=== PATIENT | male | born 1970 | race Caucasian/White ===

== ENCOUNTER 2020-05-29 14:04 | Inpatient (IN) | payer MEDICAID ==
[~2020-05-29] VITALS: Ht 170.2 cm; Wt 90.9 kg
[~2020-05-29 14:04] MED LIST: AMOX-291 PO; ASPI81TA45 PO; ATOR-2 PO; CLAR500T3 PO; FURO40TA6 PO; HYDR-3151 PO; ISOS30TA8 PO; METO25TA2 PO; METO25TA35 PO; OMEP20TA9 PO; PRAS10TA4 PO; SPIR25TA5 PO
--- NOTE | 2020-05-29 14:40 | NUR ---
PT SENT FROM [facility]. Hx NV, CHF, METH USE. HASN'T TAKEN LASIX x 2 MONTHS UNTIL 2 DAYS AGO. STATES "IT WASN'T WORKING" AND PRESENTED TO ER ORIGINALLY WITH SOB. TROP 0.26, BNP N933, GIVEN 324MG ASA, 2MG MORPHINE, AND A SHOT OF TORADOL. ARRIVES AFTER BOLUS OF HEPARIN RUNNING NOW AT11.7 U/HR. SENDING FACILITY REPORTS EKG SHOWS ANTERIOR NV, WITH RECENT Hx OF NV WITHIN LAST MONTH OR SO. PT STATES HE STOPPED USING METH 4 DAYS AGO. DENIES PAIN. 18G LAC
[2020-05-29] MEDS ORDERED: SODIUM CHLORIDE FLUSH 10ML SYR IVF ONE (15:00)
[2020-05-29 15:06] LABS: BASOPHILS % (AUTO) 0 % (0-1); EOSINOPHILS % (AUTO) 2 % (1-7); LYMPHOCYTES % (AUTO) 27 % (22-44); MEAN CORPUSCULAR HEMOGLOBIN 30.6 pg (27.5-34.5); MEAN CORPUSCULAR HGB CONC 32.9 g/dL (33.2-36.2); MEAN PLATELET VOLUME 9.7 fL (7.4-10.4); MONOCYTES % (AUTO) 11 % (2-9); NEUTROPHILS % (AUTO) 60 % (42-75); PLATELET COUNT 220 x10^3/uL (130-400); RED BLOOD COUNT 5.39 x10^6/uL (4.38-5.82); RED CELL DISTRIBUTION WIDTH 14.9 % (9.4-14.8)
[2020-05-29 15:11] LABS: MD NO
[2020-05-29 15:19] LABS: TROPONIN I 0.268 ng/mL (0.000-0.045)
--- NOTE | 2020-05-29 15:31 | NUR ---
LAB CALLED WITH CRITICAL TROP LEVEL OF 0.268. ERP NOTIFIED.
[2020-05-29] MEDS: ENOXAPARIN 40 MG/0.4 ML SQ SCH (17:30)
[2020-05-29] MEDS ORDERED: ONDANSETRON 2MG/ML, 2ML IVPush PRN (17:30)
[2020-05-29] MEDS ORDERED: ACETAMINOPHEN 325 MG TABLET PO PRN (17:30)
--- NOTE | 2020-05-29 19:30 | NUR ---
RN taking over for patient. Pt is on heparin gtt from transfering facility. RN attempted to discuss with EDMD of whether to keep the heparin gtt going. Told to call hospitalist.
[2020-05-29 19:36] LABS: TROPONIN I 0.254 ng/mL (0.000-0.045)
--- NOTE | 2020-05-29 20:49 | NUR ---
RN called Dr. Kline, admitting MD. Troponin's trending down. No complaints of SOB or CP. Told to stop heparin gtt and hold Lovenox dose until tomorrow. WCTM.
--- NOTE | 2020-05-29 20:58 | NUR ---
PT GIVEN MORE WATER. VSS. FINISHED DINNER. HEPARIN STOPPED.
--- NOTE | 2020-05-30 01:12 | NUR ---
Pt sleeping. VSS
[2020-05-30 02:14] LABS: TROPONIN I 0.255 ng/mL (0.000-0.045)
[2020-05-30 05:07] LABS: ANION GAP 10 mmol/L (5-15); CALCIUM 9.4 mg/dL (8.5-10.1); CHLORIDE 104 mmol/L (98-107); CREATININE 1.29 mg/dL (0.7-1.3)
[2020-05-30 05:13] LABS: BASOPHILS % (AUTO) 1 % (0-1); EOSINOPHILS % (AUTO) 4 % (1-7); LYMPHOCYTES % (AUTO) 18 % (22-44); MEAN CORPUSCULAR HEMOGLOBIN 30.4 pg (27.5-34.5); MEAN PLATELET VOLUME 10.1 fL (7.4-10.4); MONOCYTES % (AUTO) 10 % (2-9); NEUTROPHILS % (AUTO) 67 % (42-75); PLATELET COUNT 214 x10^3/uL (130-400); RED BLOOD COUNT 5.37 x10^6/uL (4.38-5.82); RED CELL DISTRIBUTION WIDTH 15.1 % (9.4-14.8)
[2020-05-30] MEDS ORDERED: METOPROLOL SUCCINATE 25 MG TAB.ER.24H PO SCH (06:00)
[2020-05-30 06:09] LABS: MD SCAN
--- NOTE | 2020-05-30 06:15 | NUR ---
PT CHANGED INTO PATIENT GOWNS. SOB WITH ACTIVITY. O2 SAT 92-93% RA WITH ACTIVITY.
--- NOTE | 2020-05-30 07:21 | NUR ---
REPORT FROM SANDRO RN, PT RESTING ON Tappr AT THIS TIME, NAD NOTED. VSS. SLIP SENT TO PHARM FOR AM MEDS, MEAL TRAY ORDERED
[2020-05-30] MEDS ORDERED: FUROSEMIDE 40 MG/4 ML ONE (07:47)
[2020-05-30] MEDS ORDERED: ASPIRIN 81 MG TABLET EC ONE (07:47)
[2020-05-30] MEDS ORDERED: FUROSEMIDE 40 MG/4 ML IV SCH (09:00)
[2020-05-30] MEDS ORDERED: ASPIRIN 81 MG TABLET CHEW ONE (09:14)
[2020-05-30] MEDS: FUROSEMIDE 40 MG/4 ML IV SCH (09:20)
[2020-05-30] MEDS: SPIRONOLACTONE 25 MG TABLET PO SCH (09:20)
[2020-05-30] MEDS: ASPIRIN 81 MG TABLET CHEW PO SCH (09:20)
[2020-05-30] MEDS: ISOSORBIDE MONONITRATE ER 30 MG TABLET PO SCH (09:20)
[2020-05-30] MEDS: PRASUGREL 10 MG TABLET PO SCH (09:20)
--- NOTE | 2020-05-30 09:24 | NUR ---
PT MEDICATED PER MAR. VSS, NO OTHER NEEDS AT THIS TIME
[2020-05-30] MEDS ORDERED: LISINOPRIL 5 MG TABLET PO SCH (11:00)
[2020-05-30 11:54] LABS: ALANINE AMINOTRANSFERASE 250 U/L (12-78); ALBUMIN 3.1 g/dL (3.4-5.0); ANION GAP 8 mmol/L (5-15); CALCIUM 9.1 mg/dL (8.5-10.1); CHLORIDE 104 mmol/L (98-107)
[2020-05-30 11:56] LABS: ALKALINE PHOSPHATASE 140 U/L (45-117); BILIRUBIN,TOTAL 3.5 mg/dL (0.2-1.0); CREATININE 1.41 mg/dL (0.7-1.3); TOTAL PROTEIN 6.8 g/dL (6.4-8.2)
[2020-05-30] MEDS: LISINOPRIL 5 MG TABLET PO SCH (12:30)
--- NOTE | 2020-05-30 13:49 | NUR ---
PT GIVEN MEAL TRAY, NO OTHER NEEDS AT THIS TIME. HOSPITAL BED ORDERED
--- NOTE | 2020-05-30 14:08 | NUR ---
THROUGHPUT RN: DR. CHA'S ADMIT ORDER NOTED TO NOT HAVE LEVEL OF CARE. DISCUSSED W/ [facility] DR. JAIN. NEW ORDERS FOR PT TO BE ADMITTED TO CARDIAC TELEMETRY. VERBAL READ BACK.
--- NOTE | 2020-05-30 14:52 | NUR ---
REPORT TO RECIEVING RN
[2020-05-30 15:49] VITALS: BP 105/47
[2020-05-30] MEDS: ENOXAPARIN 40 MG/0.4 ML SQ SCH (18:03)
[2020-05-30 20:24] VITALS: BP 96/67
[2020-05-30] MEDS: ATORVASTATIN 40 MG TABLET PO SCH (20:53)
[2020-05-30] MEDS ORDERED: MELATONIN 5 MG TABLET ONE (21:11)
[2020-05-30] MEDS ORDERED: MELATONIN 5 MG TABLET PO PRN (21:30)
[2020-05-31 00:56] VITALS: BP 109/81
[2020-05-31] MEDS: METOPROLOL SUCCINATE 25 MG TAB.ER.24H PO SCH (04:51)
[2020-05-31 05:18] LABS: ANION GAP 9 mmol/L (5-15); CALCIUM 8.6 mg/dL (8.5-10.1); CHLORIDE 105 mmol/L (98-107); CHOLESTEROL, TOTAL 106 mg/dL (140-239); CREATININE 1.17 mg/dL (0.7-1.3)
[2020-05-31 05:20] LABS: CHOL/HDL RATIO 4.6; HDL CHOL % 22 % (26-37); HDL CHOLESTEROL (DIRECT) 23 mg/dL (40-60); LDL CHOLESTEROL,CALCULATED 63 mg/dL (54-169); LDL/HDL RATIO 2.7 (0.5-3.0); TRIGLYCERIDES 99 mg/dL (50-200); VLDL CHOLESTEROL 20 mg/dL (0-25)
[2020-05-31] MEDS ORDERED: HEPARIN 25,000 UNITS/250ML PMX 250 ML IV PRN (09:30)
[2020-05-31] MEDS ORDERED: HEPARIN 5,000 UNITS/ML, 1ML IV ONE (09:30)
[2020-05-31 09:40] VITALS: BP 111/80
[2020-05-31] MEDS ORDERED: OMNIPAQUE 350 MG/ML, 75ML BOTTLE ONE (10:59)
[2020-05-31 11:56] VITALS: BP 118/87
[2020-05-31] MEDS: FUROSEMIDE 40 MG/4 ML IV SCH (12:00)
[2020-05-31] MEDS: PRASUGREL 10 MG TABLET PO SCH (12:01)
[2020-05-31] MEDS: ASPIRIN 81 MG TABLET CHEW PO SCH (12:01)
[2020-05-31] MEDS: SPIRONOLACTONE 25 MG TABLET PO SCH (12:01)
[2020-05-31] MEDS: ISOSORBIDE MONONITRATE ER 30 MG TABLET PO SCH (12:01)
[2020-05-31] MEDS: LISINOPRIL 5 MG TABLET PO SCH (12:01)
[2020-05-31 13:47] VITALS: BP 109/83
[2020-05-31] MEDS ORDERED: NITROGLYCERIN 0.4 MG/SPRAY SL PRN (19:00)
[2020-05-31] MEDS ORDERED: NITROGLYCERIN 0.4 MG BOTTLE (25 TABS) SL PRN (19:00)
[2020-05-31 21:01] VITALS: BP 101/71
[2020-05-31] MEDS: HEPARIN 5,000 UNITS/ML, 1ML IV PRN (21:18)
[2020-05-31] MEDS: ATORVASTATIN 40 MG TABLET PO SCH (21:18)
[2020-06-01 00:59] VITALS: BP_SYST 101; BP_SYST 84; BP_DIAS 66; BP_DIAS 79
[2020-06-01] MEDS ORDERED: IBUPROFEN 200 MG TABLET PO PRN (01:30)
[2020-06-01] MEDS ORDERED: ZOLPIDEM 5MG TABLET PO PRN (01:30)
[2020-06-01 04:04] LABS: BASOPHILS % (AUTO) 1 % (0-1); EOSINOPHILS % (AUTO) 5 % (1-7); LYMPHOCYTES % (AUTO) 21 % (22-44); MEAN CORPUSCULAR HEMOGLOBIN 30.6 pg (27.5-34.5); MEAN CORPUSCULAR HGB CONC 33.3 g/dL (33.2-36.2); MONOCYTES % (AUTO) 9 % (2-9); NEUTROPHILS % (AUTO) 65 % (42-75); PLATELET COUNT 210 x10^3/uL (130-400); RED BLOOD COUNT 4.96 x10^6/uL (4.38-5.82); RED CELL DISTRIBUTION WIDTH 14.5 % (9.4-14.8)
[2020-06-01 04:06] LABS: MD NO
[2020-06-01 04:10] LABS: ANION GAP 10 mmol/L (5-15); CALCIUM 8.4 mg/dL (8.5-10.1); CHLORIDE 102 mmol/L (98-107); CREATININE 0.98 mg/dL (0.7-1.3)
[2020-06-01] MEDS: HEPARIN 5,000 UNITS/ML, 1ML IV PRN (04:34)
[2020-06-01 06:06] VITALS: BP 100/69
[2020-06-01] MEDS: METOPROLOL SUCCINATE 25 MG TAB.ER.24H PO SCH (06:08)
[2020-06-01 07:18] VITALS: BP 96/66
[2020-06-01 10:15] VITALS: BP 102/73
[2020-06-01] MEDS: FUROSEMIDE 40 MG/4 ML IV SCH (10:19)
[2020-06-01] MEDS: SPIRONOLACTONE 25 MG TABLET PO SCH (10:19)
[2020-06-01] MEDS: ASPIRIN 81 MG TABLET CHEW PO SCH (10:19)
[2020-06-01] MEDS: LISINOPRIL 5 MG TABLET PO SCH (10:19)
[2020-06-01] MEDS: ISOSORBIDE MONONITRATE ER 30 MG TABLET PO SCH (10:19)
[2020-06-01] MEDS: PRASUGREL 10 MG TABLET PO SCH (10:19)
[2020-06-01] MEDS ORDERED: ENOXAPARIN 100 MG/ML SQ SCH (11:00)
[2020-06-01 11:15] LABS: INTERNATIONAL NORMALIZED RATIO 1.33 (0.93-1.1); PROTHROMBIN TIME 14.1 Seconds (9.6-11.5)
[2020-06-01] MEDS ORDERED: POTASSIUM CHLORIDE 20 MEQ TAB.ER.PRT PO SCH (11:30)
[2020-06-01 11:51] LABS: BILIRUBIN,INDIRECT 2.1 mg/dL (0.0-2.0); BILIRUBIN,TOTAL 3.1 mg/dL (0.2-1.0); TOTAL PROTEIN 6.8 g/dL (6.4-8.2)
[2020-06-01] MEDS ORDERED: WARFARIN MODERAT DOSE PROTOCOL XX SCH (12:00)
[2020-06-01] MEDS ORDERED: WARFARIN 7.5 MG TABLET PO-COUM ONE (18:00)
== END 2020-06-01 12:40 | disposition left against medical advice (07) | DRG 190 ==
LOC: ED 15:49 → EDIP 15:50 → 5SO 05-30 15:07
PROVIDERS: ADMIT Family Medicine; ATTEND Internal Medicine
DX: I21.A1 Myocardial infarction type 2 (principal); I50.31 Acute diastolic (congestive) heart failure; E78.5 Hyperlipidemia, unspecified; E87.1 Hypo-osmolality and hyponatremia; E87.6 Hypokalemia; I42.0 Dilated cardiomyopathy; I51.3 Intracardiac thrombosis, not elsewhere classified; N17.9 Acute kidney failure, unspecified; K76.1 Chronic passive congestion of liver; I26.99 Other pulmonary embolism without acute cor pulmonale; F17.210 Nicotine dependence, cigarettes, uncomplicated; F15.90 Other stimulant use, unspecified, uncomplicated; I25.10 Atherosclerotic heart disease of native coronary artery without angina pectoris; I27.20 Pulmonary hypertension, unspecified; I25.5 Ischemic cardiomyopathy; Z95.5 Presence of coronary angioplasty implant and graft; Z91.19 Patient's noncompliance with other medical treatment and regimen; Z91.14 Patient's other noncompliance with medication regimen; Z82.49 Family history of ischemic heart disease and other diseases of the circulatory system
CPT/HCPCS: 36415; 71045; 71275; 80048; 80053; 80061; 80076; 84443; 84484; 85025; 85520; 85610; 93005; 93306; 93970; 99285; G0378; J1644; J1650; J1940; Q9967